=== PATIENT | male | born 1945 | race Caucasian/White ===

== ENCOUNTER → 2017-06-22 | Outpatient (CLI) | payer MEDICARE, OTHER | END | disposition home or self-care (01) | LOC: GMAM 11:46 | PROVIDERS: ATTEND Family Medicine | DX: Z12.5 Encounter for screening for malignant neoplasm of prostate (principal); E55.9 Vitamin D deficiency, unspecified | CPT/HCPCS: 82306; G0103 ==

== ENCOUNTER → 2017-10-11 | Outpatient (CLI) | payer MEDICARE, OTHER ==
--- NOTE | 2017-10-12 09:35 | CT ---
EXAM DESCRIPTION: CTA Runoff: Computed Tomography. CLINICAL HISTORY: AAA COMPARISON: CT abdomen and pelvis 08/08/2012. TECHNIQUE: CT angiography of the abdominal aorta and both lower extremities is performed during rapid bolus administration of IV contrast media. Three-dimensional volume-rendering imaging is reviewed along with 2.5 mm axial source images, and 5.0 mm coronal and sagittal reformats. Total Exam DLP: 1836.25 mGy-cm. This exam was performed according to our departmental CT dose-optimization program which includes automated exposure control, adjustment of the mA and/or kV according to patient size and/or use of iterative reconstruction technique; to reduce radiation dose to as low as reasonably achievable (ALARA). FINDINGS: Upper abdominal aorta: Minimal intimal wall thickening. Minimal atherosclerotic calcification. Origins of the celiac axis and SMA are unremarkable. No aneurysm or stenosis. Mid-abdominal aorta: No aneurysm or stenosis. Bilateral single renal artery origins are unremarkable. Minimal intimal wall thickening and atherosclerotic calcification. Distal abdominal aorta: No aneurysm or stenosis. Intimal wall thickening and atherosclerotic calcification with mild narrowing origin of the HECTOR is unremarkable. Common iliacs: Normal caliber with minimal intimal wall thickening and atherosclerotic calcification. Internal iliacs: Minimal atherosclerotic calcification and normal caliber bilaterally. Bilateral external iliac arteries: Negative. Bilateral SPLICER HELPER's: Minimal calcification on the right, left side is negative with normal caliber. Bilateral SFAs: Negative. Right popliteal: Mostly obscured by artifact from right total knee arthroplasty but proximal and distal visualized and normal caliber. Right trifurcation vessels: Fair runoff into the right SHAKEEL and dorsalis pedis with good runoff into the right AMBULATORY NURSE Left popliteal: Normal caliber. Left trifurcation vessels: Left SHAKEEL is smaller with fair runoff into the dorsalis pedis. Good visualization of the peroneal and AMBULATORY NURSE with good runoff into the ankle. Other: Muscle atrophy in the left lower leg particularly soleus muscle with ORIF and arthrosis in the left ankle. Large cyst right kidney. Atrophy of the left kidney. Diffuse diverticulosis of the colon and redundancy of the sigmoid but no complications. No ascites or free fluid. Spondylosis of the lumbar spine. IMPRESSION: No aneurysm or stenosis from the proximal abdominal aortic to the bilateral ankles. Moderate intimal wall thickening and atherosclerotic calcification in the distal abdominal aorta. Fair runoff from the bilateral anterior tibial arteries into the bilateral dorsalis pedis arteries. Atrophy in the left lower leg which may be related to recent ankle surgery and arthrosis. Right renal cyst and atrophy of the left kidney. Diverticulosis of the mid and distal colon with no evidence of acute inflammation. Electronically signed by: García Negron MD 10/12/2017 9:33 AM CDT
== END ==
LOC: CT 08:59
PROVIDERS: ATTEND Family Medicine
DX: I71.4 Abdominal aortic aneurysm, without rupture (principal)

== ENCOUNTER → 2017-12-18 | Outpatient (CLI) | payer MEDICARE, OTHER ==
--- NOTE | 2017-12-18 16:37 | CT ---
EXAM DESCRIPTION: Head: Computed Tomography. CLINICAL HISTORY: HEADACHE COMPARISON: None. TECHNIQUE: Non-helical axial scans through the skull and brain, at 2.5 mm intervals, non-contrast. Coronal and sagittal 2.0 mm reconstructions. Total Exam DLP: 859.97 mGy-cm. This exam was performed according to our departmental dose-optimization program which includes automated exposure control, adjustment of the mA and/or kV according to patient size and/or use of iterative reconstruction technique; to reduce radiation dose to as low as reasonably achievable (ALARA). FINDINGS: No hemorrhage, no mass-effect, and no midline shift. Minimal low-density in the periventricular white matter and also the bilateral subcortical white matter of the cerebral hemispheres. More focal low-density is noted in the left parietal lobe in the subcortical white matter, on axial series 5, image 38 and 39. No mass effect or hemorrhage. No abnormal radiodense material in the brain parenchyma. Vascular calcifications anterior circulation; physiologic calcifications in the pineal gland and choroid plexus. No effacement or displacement of the ventricles, CSF spaces, or subdural spaces. Cortical sulci abutting the temporal lobes frontal and parietal lobes are mildly prominent but symmetric bilaterally. No extra axial fluid collection or hemorrhage. No gross abnormalities of the bony calvarium. Included paranasal sinuses and mastoid air cells are well - aerated. IMPRESSION: 1. No hemorrhage, no mass effect, no midline shift. Bilateral symmetric minimal low-density in the periventricular white matter and subcortical white matter. Slightly more dense in the left parietal lobe. Differential includes focal ischemia, early infarction, inflammatory process, or mass. Recommend follow-up MRI scan without and with gadolinium IV contrast. Electronically signed by: García Negron MD 12/18/2017 4:36 PM CDT
== END ==
LOC: GMAM 14:51
PROVIDERS: ATTEND Family Medicine
DX: G44.209 Tension-type headache, unspecified, not intractable (principal)

== ENCOUNTER → 2017-12-27 | Outpatient (CLI) | payer MEDICARE, OTHER ==
--- NOTE | 2017-12-27 16:59 | MRI ---
EXAM DESCRIPTION: Brain w/oContrast: MRI. CLINICAL HISTORY: HEADACHE COMPARISON: None. TECHNIQUE: Multiplanar, high-field MRI unit, multiple diffusion sequences, multiple conventional sequences without contrast. FINDINGS: Few small bilateral foci of hyperintense FLAIR and T2-weighted signal in the periventricular white matter and hull-white matter junctions of the cerebral hemispheres. Mostly frontal and parietal lobes right more than left. . No hemorrhage, no cerebral edema, no mass-effect. No diffusion restriction. Possible cyst left posterior parietal waterman radiata at the level of the ventricle. Normal signal in the bilateral basal ganglia. Normal signal in the brainstem and cerebellar hemispheres. No hemorrhage, no cerebral edema, no mass-effect. Concordance of the diffusion and non-diffusion sequences with no diffusion restriction. Cortical sulci, ventricles, and other CSF spaces, and the subdural spaces are normally configured for the patient's age. No effacement or displacement. No midline shift. No extra-axial hemorrhage. Normal flow signal void in the major vessels of the cachil dehe Ayers, and the venous sinuses. IACs are symmetric bilaterally. Normal signal in the bilateral mastoid air cells. No mass effect in the bilateral cerebellopontine angles. Pituitary gland occupies most of the sella. Base of the cerebellar tonsils is above the foramen magnum. Minimal mucoperiosteal thickening in the paranasal sinuses with no air-fluid levels. The bony calvarium is intact. IMPRESSION: 1. Few scattered bilateral white matter lesions are most likely related to cerebral microvascular disease. No intra-axial extra-axial hemorrhage, no mass effect, no cerebral edema, no midline shift. 2. Normal noncontrast MRI diffusion study with no evidence of acute or subacute infarction. 3. Minimal chronic paranasal sinusitis. Electronically signed by: García Negron MD 12/27/2017 4:57 PM CDT
== END ==
LOC: MRI 10:00
PROVIDERS: ATTEND Family Medicine
DX: G44.209 Tension-type headache, unspecified, not intractable (principal); J32.9 Chronic sinusitis, unspecified

== ENCOUNTER → 2018-07-16 | Outpatient (CLI) | payer MEDICARE, OTHER | LOC: GMAM 11:25 | PROVIDERS: ATTEND Family Medicine | DX: E53.8 Deficiency of other specified B group vitamins (principal); E55.9 Vitamin D deficiency, unspecified ==

== ENCOUNTER → 2018-07-18 | Outpatient (CLI) | payer MEDICARE, OTHER | LOC: GMAM 15:18 | PROVIDERS: ATTEND Family Medicine | DX: Z12.5 Encounter for screening for malignant neoplasm of prostate (principal) ==

== ENCOUNTER 2018-12-11 19:18 | Observation (INO) | payer MEDICARE, OTHER ==
[2018-12-11] MEDS ORDERED: MORPHINE SULFATE INJ 10 MG/ML VIAL IV ONE ×2 (19:54→22:20)
[2018-12-11] MEDS ORDERED: ONDANSETRON INJ 4 MG/2 ML VIAL IV ONE (19:54)
--- NOTE | 2018-12-11 19:57 | ED.PDOC ---
History of Present Illness - General Chief Complaint: Back Pain or Injury Stated Complaint: lower back pain Time Seen by Provider: 12/11/18 19:39 Source: patient, RN notes reviewed, Vital Signs reviewed Exam Limitations: no limitations - History of Present Illness Initial Comments: c/o right lower back pain for approx a week after a day of heavy lifting. Pain is similar to previous episodes. Worse with walking or ROM of back. Taking hydrocodone & Tramadol without relief. No fever or abdominal/flank pain. No h/o anuerysm. Does have a long h/o back pain & injury. Has seen a chiropractor twice this week & only hurts more. No cauda equina symptoms. Does have chronic sciatica. Timing/Duration: 1 week Quality/Severity: severe, radiation, sharpness Back Pain Location: lumbar spine, paraspinous muscles Back Pain Radiation: upper legs - right Method of Injury/Prior Injury: twisted, prior injury Improving Factors: immobilization Worsening Factors: movement Associated Symptoms: denies symptoms Allergies/Adverse Reactions: Allergies NO KNOWN ALLERGY Allergy (Verified 12/11/18 19:38) Home Medications: Ambulatory Orders Unobtainable 01/01/16 Review of Systems - Review of Systems Constitutional: States: no symptoms reported EENTM: States: no symptoms reported Respiratory: States: no symptoms reported Cardiology: States: no symptoms reported Gastrointestinal/Abdominal: States: no symptoms reported Genitourinary: States: no symptoms reported Musculoskeletal: States: see HPI Skin: States: no symptoms reported Neurological: States: see HPI Past Medical History (General) - Patient Medical History Hx Seizures: No Hx Stroke: No Hx Dementia: No Hx Asthma: No Hx of COPD: No Hx Cardiac Disorders: No Hx Congestive Heart Failure: No Hx Pacemaker: No Hx Hypertension: No Hx Thyroid Disease: No Hx Diabetes: No Hx Gastroesophageal Reflux: No Hx Renal Disease: No Hx Cancer: No Hx of HIV: No Hx Hepatitis C: No Hx MRSA: No - Vaccination History Hx Tetanus, Diphtheria Vaccination: No Hx Influenza Vaccination: Yes - 2016 Hx Pneumococcal Vaccination: Yes - 2016 - Social History Hx Tobacco Use: No Hx Alcohol Use: No Hx Substance Use: No Hx Substance Use Treatment: No Hx Depression: No - Female History Patient is a Female of Child Bearing Age (10 -59 yrs old): No Family Medical History - Family History Father Family History: No Known Physical Exam - Physical Exam General Appearance: Alert, No apparent distress, Other - uncomfortable Neck Exam: full range of motion, normal inspection Cardiovascular/Respiratory: no respiratory distress Gastrointestinal/Abdominal: non tender, soft, no organomegaly, no pulsatile mass Back Exam: normal inspection, no vertebral tenderness, decreased range of motion Extremity Exam: no evidence of injury, normal range of motion Neurologic: no motor/sensory deficits, alert, normal mood/affect, oriented x 3 Skin Exam: normal color, warm/dry Progress - Consult/PCP Time Called: 19:50 Consult/PCP: Kathy Alvarenga NP Departure - Departure Clinical Impression: Back pain due to injury Time of Disposition: 19:55 Disposition: Admit Patient Condition: Fair Home Medications: Ambulatory Orders Unobtainable 01/01/16 Decision To Admit - Decistion To Admit Decision to Admit Reason: Admit from ER Decision to Admit Date: 12/11/18 - obs Decision to Admit Time: 19:56
--- NOTE | 2018-12-11 21:48 | HP ---
SUPERVISING PHYSICIAN: Filemon Bryant MD CHIEF COMPLAINT: Low back pain, HISTORY OF PRESENT ILLNESS: This is a 73 year-old male patient who came to the Emergency Room due to complaints of lower back pain. He had actually been moving some pips for fence for two days three or four days before presenting to the Emergency Room. He does have a history of lumbar radiculopathy. He has been taking hydrocodone with no relief. The pain in his lower back has worsened to the point he has difficulty getting around. He came to the Emergency Room. His vital signs were temperature of 97.7, heart rate 63, blood pressure 131/84, respiratory rate 20, 02 saturation 95% on room air. His CBC was unremarkable. Coags were also within normal limits. Chemistry was unremarkable except his chloride was slightly low at 99, serum osmolality was low at 269.1. He received some morphine in the Emergency Room and I was called for hospital admission. PAST MEDICAL HISTORY: 1. Abdominal aortic aneurysm. 2. Anxiety with depression. 3. CVA. 4. Cervical spinal stenosis. 5. Chronic pain syndrome. 6. Lumbar radiculopathy. 7. Hyperlipidemia. 8. Osteoarthritis of the knee. 9. Basal cell skin cancer that was removed. 10. diverticulosis. PAST SURGICAL HISTORY: 1. Multiple left ankle surgeries due to a traumatic injury. 2. Left shoulder rotator cuff repair. 3. Joint replacement of right hand. 4. Joint replacement of left ankle. 5. Carpal tunnel on both hands x2. 6. Total knee arthroplasty of right knee. CURRENT MEDICATIONS: Per the EMR and awaiting verification. ALLERGIES: No known allergies. FAMILY HISTORY: Positive for skin cancer, arrhythmias, osteoarthritis, emphysema. SOCIAL HISTORY: He is , he has three children who live in [place]. He quit smoking approximately 30 years ago. He denies any ETOH or illicit drug use. REVIEW OF SYSTEMS: GENERAL: Negative for fever, fatigue or weight changes. HEENT: Negative for sinus symptoms, ear pain, vision changes or sore throat. RESPIRATORY: Negative for wheezing, coughing or shortness of breath. CARDIAC: Negative for chest pain, palpitations or tachycardia. GASTROINTESTINAL: Negative for nausea, vomiting, diarrhea, constipation or abdominal pain. GENITOURINARY: Negative for hematuria, dysuria or polyuria. SKIN: Negative for lesions or rashes. BACK: Positive for some chronic lower back problems with recent injury due to over exertion by lifting fences. Negative for arthralgias, myalgias. NEUROLOGIC: Negative for headache, dizziness, or seizures. LABORATORY AND X-RAY: As per history of present illness. PHYSICAL EXAMINATION: VITAL SIGNS: GENERAL: HEENT: .Normocephalic and atraumatic. Pupils are equal and reactive. NECK: Supple without mass. No jugular venous distention. Trachea is midline. CHEST: .There is equal rise and fall of the chest with inspiration and expiration. CARDIOVASCULAR: Regular rate and rhythm. ABDOMEN: Soft, nondistended, non-tender. Bowel sounds are positive. EXTREMITIES: No cyanosis, clubbing, or edema. NEUROLOGIC: Awake, alert, and oriented times three. ASSESSMENT: 1. Intractable lower back pain most like related to a recent back strain. He also has a history of lumbar radiculopathy as well as chronic lower back pain. 2. History of lumbar radiculopathy. 3. Hyperlipidemia. 4. Depression and anxiety. 5. Osteoarthritis. 6. Chronic pain syndrome on narcotic pain medications chronically. PLAN: We will place the patient in observation. We will change his morphine to Fentanyl as his morphine is not holding his pain. I have also started him on some Neurontin 600 t.i.d. as well as some muscle relaxers. His home medications will be restarted as soon as they are verified. I have put him on Lovenox for DVT prophylaxis as well as PPI for ulcer prophylaxis. I will do some x-rays and CT in the morning. Hopefully, we can get his pain under control and get him to rehabilitation or a neurological consultation and he will need an outpatient lumbar MRI and will continue to monitor him closely and follow as needed. JOB #[id number] [facility]
[2018-12-11] MEDS ORDERED: ONDANSETRON INJ 4 MG/2 ML VIAL IV PRN (22:16)
[2018-12-11] MEDS ORDERED: SODIUM CHLORIDE 0.9% (FLUSH) 10 ML SYG IV PRN (22:16)
[2018-12-11] MEDS ORDERED: TEMAZEPAM 15 MG CAP PO PRN (22:16)
[2018-12-11] MEDS ORDERED: IV SET AND CAP CHANGE INJ INJ SCH (22:30)
[2018-12-11] MEDS: ENOXAPARIN SODIUM 40 MG/0.4 ML SYG SUBCU SCH (22:57)
[2018-12-11] MEDS: CYCLOBENZAPRINE HCL 10 MG TAB PO PRN (22:57)
[2018-12-11] MEDS: GABAPENTIN 300 MG CAP PO SCH (22:57)
[2018-12-11] MEDS ORDERED: MAGNESIUM HYDROXIDE 30 ML UD PO ONE (23:32)
[2018-12-12] MEDS: MORPHINE SULFATE INJ 10 MG/ML VIAL IV PRN ×2 (02:03→03:50)
[2018-12-12] MEDS ORDERED: fentaNYL CITRATE INJ 50 MCG/ML AMP ONE (05:56)
[2018-12-12] MEDS ORDERED: fentaNYL CITRATE INJ 50 MCG/ML AMP IV SCH (06:00)
[2018-12-12] MEDS: fentaNYL CITRATE INJ 50 MCG/ML AMP IV PRN ×2 (06:02→11:04)
[2018-12-12] MEDS ORDERED: PANTOPRAZOLE SODIUM IV 40 MG VIAL IV SCH (06:30)
[2018-12-12] MEDS: GABAPENTIN 300 MG CAP PO SCH ×3 (08:47→20:32)
[2018-12-12] MEDS: SODIUM CHLORIDE 0.9% (FLUSH) 10 ML SYG IV SCH ×2 (08:47→20:33)
--- NOTE | 2018-12-12 11:24 | RAD ---
EXAM: XR Lumbar Spine, 2 or 3 Views CLINICAL HISTORY: 73 years old and is Male; back pain TECHNIQUE: Frontal and lateral views of the lumbar spine. COMPARISON: Limited comparison made to CT 09/05/2012 FINDINGS: Limitations: None. Vertebrae: Diffuse mild facet arthrosis present. There is no interval change very minimal height loss of L1 and L2. Spondylosis noted. No acute fracture. No subluxation. Disc spaces: No significant abnormality noted. No significant narrowing. Soft tissues: Unremarkable. Gastrointestinal tract: Moderate colonic stool present with moderate colonic redundancy noted. IMPRESSION: No acute findings. Electronically signed by: Kerry Sullivan MD 12/12/2018 11:23 AM CDT
[2018-12-12] MEDS ORDERED: HYDROmorphone PCA 0.2 MG/ML 1 BAG BAG IVPB SCH (11:30)
--- NOTE | 2018-12-12 11:47 | CT ---
PROCEDURE: CT Lumbar Spine Without Intravenous Contrast CLINICAL INDICATION: The patient is 73 years old and is Male; intractable low back pain TECHNIQUE: Axial computed tomography images of the lumbar spine without intravenous contrast. Sagittal and coronal reformatted images were created and reviewed. This CT exam was performed using one or more of the following dose reduction techniques: automated exposure control, adjustment of the mA and/or kV according to patient size, and/or use of iterative reconstruction technique. COMPARISON: CTA runoff from 10/11/2017. FINDINGS: VERTEBRAE: There is mild loss of height of the L1 superior endplate and the L2 inferior endplate. However, no discrete fracture is identified. There is NO fracture or malalignment identified in the lumbar spine. There are 5 non-rib bearing lumbar vertebral bodies. Alignment is maintained. The spinous processes and the transverse processes are intact. There is a small in the inferior endplate of L3. Facet hypertrophic changes are noted in the lower lumbar spine. DISCS/SPINAL CANAL/NEURAL FORAMINA: There is NO large disc herniation with small disc bulges at the lower levels. Disc heights are relatively preserved. No spinal canal stenosis. SOFT TISSUES: Unremarkable. VASCULATURE: There are atheromatous vascular calcifications of the aortoiliac system. KIDNEYS AND URETERS: Large RIGHT renal cyst is noted. STOMACH AND BOWEL: There is an abundant amount of stool within the rectal lumen. REPRODUCTIVE: The prostate gland is enlarged. OTHER FINDINGS: There is NO paravertebral hematoma. IMPRESSION: There is mild loss of height of the L1 superior endplate and the L2 inferior endplate. However, no discrete fracture is identified. In comparison to the prior CT runoff exam, the appearance of these 2 vertebral levels is unchanged. Mild degenerative changes as noted. Electronically signed by: Shar Munoz MD 12/12/2018 11:45 AM CDT
[2018-12-12] MEDS ORDERED: methylPREDNISolone SODIUM SUC 125 MG/2 ML VIAL IV ONE (13:00)
[2018-12-12] MEDS ORDERED: SODIUM CHLORIDE 0.9% 250ML 250 ML ONE (13:07)
[2018-12-12] MEDS ORDERED: SODIUM CHLORIDE 0.9% 250ML 250 ML IVS PRN (13:27)
[2018-12-12] MEDS: KETOROLAC TROMETHAMINE INJ 30 MG/ML VIAL IV SCH ×2 (14:45→20:32)
--- NOTE | 2018-12-12 15:53 | PN ---
SUPERVISING PHYSICIAN: Filemon Bryant MD DATE: 12/12/18 SUBJECTIVE: The patient is lying quietly in bed. Earlier today we placed him on a MANUAL TRAINING TEACHER pump of Dilaudid to get his pain under control. He is still a little bit restless but much better than he was earlier. I discussed his test results with his and she agreed with the plan of care. The patient has no complaints of shortness of breath, nausea or vomiting. OBJECTIVE: VITAL SIGNS: Temperature 98.2, heart rate 66, blood pressure 105/69. Respiratory rate 18, 02 saturation 96% on 2 liters nasal cannula. RESPIRATORY: Essentially clear to auscultation bilaterally. CARDIAC: Regular rate and rhythm. GI: Abdomen soft, nondistended, non-tender, bowel sounds are positive. NEURO: He is sleepy but awakens easily. He is oriented times 3. LABORATORY: There are no labs to report at this time. RADIOLOGY: Lumbar spine x-ray shows no acute findings. Lumbar spine CT shows mild loss of height at the L1 superior endplate and the L2 inferior endplate, however, no discrete fractures are identified in comparison to the prior CT exam. The appearance of these two vertebral levels is unchanged and mild degenerative changes noted. All other labs and films have been reviewed via the EMR. ASSESSMENT: 1. Intractable lower back pain most like related to a recent back strain. He also has a history of lumbar radiculopathy as well as chronic lower back pain. 2. History of lumbar radiculopathy. 3. Hyperlipidemia. 4. Depression and anxiety. 5. Osteoarthritis. 6. Chronic pain syndrome on narcotic pain medications chronically. PLAN: As stated earlier in the note, a MANUAL TRAINING TEACHER of Dilaudid has been started. His other IV pain medications have been discontinued. Will try to wean patient off of MANUAL TRAINING TEACHER pump and restart his home medications. I spoke at length to his PCP, Dr. Bryant, and plan to continue to keep his pain under control to wean him off of his IV medication and transition him back to oral medication. I will hold off on lab for in the morning as his lab is fairly stable. I have also given him four doses of IV Toradol and also started him on a Solu-Medrol IV taper. Will transition him to p.o. prednisone tomorrow. Hopefully, we have him discharged tomorrow or the next day with followup with Dr. Bryant. He will need an outpatient MRI as well as possible consultation for neurosurgery or a pain doctor that specializes in back issues or a neurologist. I also may increase his Gabapentin as that may help with his pain but at this point, I will leave him on 600 mg t.i.d. as well as his muscle relaxer. I have encouraged good pulmonary hygiene and will monitor him closely and follow as needed. #[id number] BOB
[2018-12-12] MEDS: DUTASTERIDE 0.5 MG CAP PO SCH (17:34)
[2018-12-12] MEDS: TAMSULOSIN 0.4 MG CAP PO SCH (17:34)
[2018-12-12] MEDS: ENOXAPARIN SODIUM 40 MG/0.4 ML SYG SUBCU SCH (20:32)
[2018-12-12] MEDS: QUEtiapine FUMARATE 25 MG TAB PO SCH (20:33)
[2018-12-12] MEDS: traZODone HCL 50 MG TAB PO SCH (20:33)
[2018-12-13] MEDS: KETOROLAC TROMETHAMINE INJ 30 MG/ML VIAL IV SCH ×2 (03:04→10:18)
[2018-12-13] MEDS: PANTOPRAZOLE SODIUM TAB 40 MG PO SCH (06:10)
[2018-12-13] MEDS: GABAPENTIN 300 MG CAP PO SCH ×3 (10:06→20:35)
[2018-12-13] MEDS: SODIUM CHLORIDE 0.9% (FLUSH) 10 ML SYG IV SCH ×2 (10:18→20:36)
[2018-12-13] MEDS ORDERED: MAGNESIUM HYDROXIDE 30 ML UD PO PRN (11:31)
[2018-12-13] MEDS: POLYETHYLENE GLYCOL 3350 17 GM PCKT PO SCH (11:49)
[2018-12-13] MEDS: predniSONE 20 MG TAB PO SCH (11:49)
[2018-12-13] MEDS: HYDROcodone 10MG/APAP 325MG 1 EA TAB PO PRN ×2 (16:58→20:56)
[2018-12-13] MEDS: TAMSULOSIN 0.4 MG CAP PO SCH (17:41)
[2018-12-13] MEDS: DUTASTERIDE 0.5 MG CAP PO SCH (17:41)
[2018-12-13] MEDS: CYCLOBENZAPRINE HCL 10 MG TAB PO PRN (18:37)
[2018-12-13] MEDS: traZODone HCL 50 MG TAB PO SCH (20:36)
[2018-12-13] MEDS: ENOXAPARIN SODIUM 40 MG/0.4 ML SYG SUBCU SCH (20:36)
[2018-12-13] MEDS: QUEtiapine FUMARATE 25 MG TAB PO SCH (20:36)
[2018-12-14] MEDS: HYDROcodone 10MG/APAP 325MG 1 EA TAB PO PRN ×3 (01:51→12:19)
[2018-12-14] MEDS: PANTOPRAZOLE SODIUM TAB 40 MG PO SCH (06:05)
[2018-12-14] MEDS: SODIUM CHLORIDE 0.9% (FLUSH) 10 ML SYG IV SCH (08:47)
[2018-12-14] MEDS: GABAPENTIN 300 MG CAP PO SCH (08:47)
[2018-12-14] MEDS: POLYETHYLENE GLYCOL 3350 17 GM PCKT PO SCH (08:47)
[2018-12-14] MEDS: predniSONE 20 MG TAB PO SCH (08:47)
[2018-12-14 10:17] VITALS: BP 110/67; TEMP 97.7
--- NOTE | 2018-12-14 10:49 | PN ---
SUPERVISING PHYSICIAN: Filemon Bryant MD DATE: 12/13/18 SUBJECTIVE: The patient is lying in bed. His is at the bedside. He is feeling better and his pain is under much better control. We discussed discharge planning with [facility] in [place] and he and his that is the most likely the best option for him. He denies any shortness of breath, chest pain or nausea or vomiting. OBJECTIVE: VITAL SIGNS: Temperature 97.7, heart rate 64, blood pressure 103/64. Respiratory rate 16, 02 saturation 96% on 3 liters nasal cannula. RESPIRATORY: Essentially clear to auscultation bilaterally. CARDIAC: Regular rate and rhythm. GI: Abdomen soft, nondistended, non-tender, bowel sounds are positive. EXTREMITIES: No cyanosis, clubbing, or edema. NEURO: He is awake, alert, and oriented times 3. LABORATORY: There are no labs or films to report at this time. ASSESSMENT: 1. Intractable lower back pain most like related to a recent back strain. He also has a history of lumbar radiculopathy as well as chronic lower back pain. 2. History of lumbar radiculopathy. 3. Hyperlipidemia. 4. Depression and anxiety. 5. Osteoarthritis. 6. Chronic pain syndrome on narcotic pain medications chronically. PLAN: We will continue with present supportive care. I spoke with Dr. Bryant at length today about discharge planning of this patient and spoke with patient and his . Dr. Bryant, the patient and his have agreed that the best choice of treatment for him is to be transferred to a rehabilitation facility. He has agreed to [facility] in [place]. They are to come to the hospital this afternoon and evaluate him. His pain has been fairly well under control. We will discontinue his SCREW SUPERVISOR pump and start him on his ibuprofen 10 mg/350 today. His IV steroids have been titrated down and he will start his p.o. prednisone tomorrow. Hopefully, [facility] will accept him and he can be transferred this afternoon or tomorrow morning and that they can get an MRI of his lower back as well as a neurology or neurosurgical consultation, otherwise, the patient can be transferred. We will continue to monitor him closely and follow as needed. [facility][id number]
[2018-12-14 14:58] VITALS: O2SAT 93
--- NOTE | 2018-12-15 14:51 | DS ---
SUPERVISING PHYSICIAN: Filemon Bryant M.D. ADMISSION DIAGNOSIS: 1. Intractable lower back pain most like related to a recent back strain. He also has a history of lumbar radiculopathy as well as chronic lower back pain. 2. History of lumbar radiculopathy. 3. Hyperlipidemia. 4. Depression and anxiety. 5. Osteoarthritis. 6. Chronic pain syndrome on narcotic pain medications chronically. DISCHARGE DIAGNOSIS: 1. Intractable lower back pain most like related to a recent back strain. He also has a history of lumbar radiculopathy as well as chronic lower back pain. 2. History of lumbar radiculopathy. 3. Hyperlipidemia. 4. Depression and anxiety. 5. Osteoarthritis. 6. Chronic pain syndrome on narcotic pain medications chronically. REASON FOR HOSPITALIZATION: This is a 73 year-old male patient who came to the Emergency Room due to complaints of lower back pain. He had actually been moving some pips for fence for two days three or four days before presenting to the Emergency Room. He does have a history of lumbar radiculopathy. He has been taking hydrocodone with no relief. The pain in his lower back has worsened to the point he has difficulty getting around. He came to the Emergency Room. His vital signs were temperature of 97.7, heart rate 63, blood pressure 131/84, respiratory rate 20, 02 saturation 95% on room air. His CBC was unremarkable. Coags were also within normal limits. Chemistry was unremarkable except his chloride was slightly low at 99, serum osmolality was low at 269.1. He received some morphine in the Emergency Room and I was called for hospital admission. LABORATORY STUDIES: CBC on admission showed normal white count. No differential shift. Coagulation studies showed to be normal PT and PTT. Chemistries were unremarkable on admission with BUN 11, creatinine 0.79, magnesium 2.2. Liver functions all within normal limits. RADIOLOGY: In the E. R. prior to admission he had a lumbar spine x-ray and per radiology interpretation showed no acute findings. This was followed-up with a CT of the lumbar spine and per radiology interpretation showed mild loss of height of L1 superior end plate and L2 inferior end plate, however no discrete fractures were identified. In comparison to the prior CT runoff exam, the appearance of these 2 vertebral levels are unchanged. There was note of mild degenerative changes. Please see that final report for full details. HOSPITAL COURSE: Mr. Clay was admitted for intractable back pain and provided pain management with a IMMIGRATION CONSULTANT pump with Dilaudid, and was transitioned to oral medications. He had a consultation with [facility] facility and was accepted in transfer for continued treatment. On the day of discharge he was felt to be clinically stable enough to transfer to continue with rehab through inpatient hospital rehab through [facility]. PLAN: The patient was discharged to transfer to [facility] facility for continued rehabilitation efforts. He is to followup with his primary care physician once discharged as directed, who is Dr. Bryant. He was instructed to continue medications as per his medical administration record. He was to have ongoing physical therapy per [facility]. Diet was to be regular diet as tolerated. Condition on discharge was stable and improving. DISPOSITION: The patient is discharged and transferred to [facility] in [place], [place]. #[id number] MTDD
== END 2018-12-14 12:30 ==
LOC: ER 19:18 → MS 21:47
PROVIDERS: ADMIT Nurse Practitioner Acute Care; ATTEND Nurse Practitioner Family
DX: M54.41 Lumbago with sciatica, right side (principal); M54.16 Radiculopathy, lumbar region; G89.4 Chronic pain syndrome; E78.5 Hyperlipidemia, unspecified; F41.8 Other specified anxiety disorders; M19.90 Unspecified osteoarthritis, unspecified site; M48.02 Spinal stenosis, cervical region; X50.0XXA Overexertion from strenuous movement or load, initial encounter; X50.3XXA Overexertion from repetitive movements, initial encounter; Y93.89 Activity, other specified; Y92.008 Other place in unspecified non-institutional (private) residence as the place of occurrence of the external cause; Z79.891 Long term (current) use of opiate analgesic; Z79.899 Other long term (current) drug therapy; Z86.73 Personal history of transient ischemic attack (TIA), and cerebral infarction without residual deficits; Z96.651 Presence of right artificial knee joint; Z96.662 Presence of left artificial ankle joint; Z85.828 Personal history of other malignant neoplasm of skin; Z87.891 Personal history of nicotine dependence
CPT/HCPCS: 96374; 96375 ×2; 96376 ×3; 96372 ×3; J3010 ×2; J1885 ×4; J2930; J2270 ×4; J2405; J7512 ×2; J7050 ×2; J1650 ×3; 80053; 36415; 85025; 83735; 85730; 85610; 72100; 72131; 94760 ×2; 94762 ×5; 97116; G8978; G8979; 97162; 99285; G0378

== ENCOUNTER → 2018-12-21 | Outpatient (CLI) | payer MEDICARE, OTHER | LOC: YCHH 10:13 | PROVIDERS: ATTEND Family Medicine | DX: N39.0 Urinary tract infection, site not specified (principal) ==

== ENCOUNTER → 2019-02-05 | Outpatient (CLI) | payer MEDICARE, OTHER | LOC: LAB.O 11:33 | PROVIDERS: ATTEND Neurological Surgery | DX: Z01.812 Encounter for preprocedural laboratory examination (principal); M54.16 Radiculopathy, lumbar region ==

== ENCOUNTER → 2019-03-27 | Outpatient (CLI) | payer MEDICARE, OTHER | LOC: GMAM 09:07 | PROVIDERS: ATTEND Family Medicine | DX: D64.9 Anemia, unspecified (principal); E78.5 Hyperlipidemia, unspecified; R73.09 Other abnormal glucose; E55.9 Vitamin D deficiency, unspecified; E53.8 Deficiency of other specified B group vitamins ==

== ENCOUNTER → 2019-09-18 | Outpatient (CLI) | payer MEDICARE, OTHER | LOC: GMAM 11:58 | PROVIDERS: ATTEND Family Medicine | DX: E53.8 Deficiency of other specified B group vitamins (principal); E55.9 Vitamin D deficiency, unspecified; E78.2 Mixed hyperlipidemia; Z12.5 Encounter for screening for malignant neoplasm of prostate; Z79.899 Other long term (current) drug therapy | CPT/HCPCS: 82306; 82607; G0103 ==

== ENCOUNTER → 2020-03-18 | Outpatient (CLI) | payer MEDICARE, OTHER | LOC: GMAM 17:07 | PROVIDERS: ATTEND Family Medicine | DX: E53.8 Deficiency of other specified B group vitamins (principal); E55.9 Vitamin D deficiency, unspecified; D64.9 Anemia, unspecified; E78.2 Mixed hyperlipidemia; R97.20 Elevated prostate specific antigen [PSA] ==

== ENCOUNTER → 2020-03-24 | Outpatient (CLI) | payer MEDICARE, OTHER | LOC: GMAM 15:06 | PROVIDERS: ATTEND Family Medicine | DX: U07.1 COVID-19 (principal); R71.8 Other abnormality of red blood cells; R09.02 Hypoxemia ==

== ENCOUNTER 2020-03-26 21:19 | Emergency (ER) | payer MEDICARE, OTHER ==
--- NOTE | 2020-03-26 21:30 | ED.PDOC ---
History of Present Illness - General Time Seen by Provider: 03/26/20 21:28 Source: patient - History of Present Illness Initial Comments: 74-year-old male who presents with chief complaint of shortness of breath. Patient reports he was diagnosed with COVID-19 days ago in the clinic. His PCP is Dr. Bryant. He was told that if he had worsening condition he should be seen in the ER. He reports that he has been sick now for about 1 week. Reports prim juana symptoms of frequent cough reductive for mucus, watery diarrhea with about 3-4 episodes per day, intermittent nausea, fatigue/malaise, moderate dyspnea, body aches. Reports his cough and dyspnea seem to have worsened today. Reports he become short of breath with walking short distances around his home. Rates his dyspnea and cough is moderate in severity. Patient was seen yesterday and given a steroid IM injection and reports brief improvement initially but is now worsened. Additionally reports some mild constant tightness in the center of his chest without radiation. No medications taken for. Denies any history of cardiac issues/VT. Patient is is otherwise pretty healthy. He reports no major medical issues. Denies any history of hypertension, diabetes. He has never been a smoker and denies any history of asthma or COPD. His is also currently ill with COVID-19 in the household. Allergies/Adverse Reactions: Allergies NO KNOWN ALLERGY Allergy (Verified 12/11/18 19:38) Home Medications: Ambulatory Orders Dutasteride 0.5 mg PO .1800 12/11/18 Fluoxetine HCl [Fluoxetine Hydrochloride] 12/11/18 Quetiapine Fumarate 25 mg PO BEDTIME PRN 12/11/18 Tamsulosin HCl 0.4 mg PO .1800 12/11/18 Tramadol HCl [Tramadol Hydrochloride] 50 - 100 mg PO Q6H PRN 12/11/18 Trazodone HCl [Trazodone Hydrochloride] 50 mg PO BEDTIME 12/11/18 Cyclobenzaprine HCl [Flexeril] 10 mg PO TID PRN tab 12/14/18 Gabapentin [Neurontin] 600 mg PO TID cap 12/14/18 HYDROcodone 10MG/APAP 325MG [[place] 10/325] 1 ea PO Q4H PRN tab 12/14/18 Pantoprazole Tablet [Protonix] 40 mg PO DAILY@0630 tab 07/06/19 predniSONE 40 mg PO DAILY tab 12/14/18 Review of Systems - Review of Systems Review of Systems: 03/26/20 21:50 as per HPI All other Systems: Reviewed and Negative Past Medical History (General) - Patient Medical History Hx Seizures: No Hx Stroke: No Hx Dementia: No Hx Asthma: No Hx of COPD: No Hx Cardiac Disorders: No Hx Congestive Heart Failure: No Hx Pacemaker: No Hx Hypertension: No Hx Thyroid Disease: No Hx Diabetes: No Hx Gastroesophageal Reflux: No Hx Renal Disease: No Hx Cancer: No Hx of HIV: No Hx Hepatitis C: No Hx MRSA: No - Vaccination History Hx Tetanus, Diphtheria Vaccination: No Hx Influenza Vaccination: Yes - 2016 Hx Pneumococcal Vaccination: Yes - 2016 - Social History Hx Tobacco Use: No Hx Alcohol Use: No Hx Substance Use: No Hx Substance Use Treatment: No Hx Depression: No Hx Physical Abuse: No Hx Emotional Abuse: No Family Medical History - Family History Father Family History: No Known Living Status: Cause of : old age Mother Living Status: Cause of : copd Physical Exam - Physical Exam General Appearance: Alert, Comfortable, No apparent distress Eye Exam: bilateral normal Ears, Nose, Throat: hearing grossly normal, normal ENT inspection, normal pharynx Neck: non-tender, full range of motion, supple, normal inspection Respiratory: lungs clear, normal breath sounds, no respiratory distress, no accessory muscle use Cardiovascular/Chest: normal peripheral pulses, regular rate, rhythm, no edema, no gallop, no JVD, no murmur Peripheral Pulses: radial,right: 2+, radial,left: 2+ Gastrointestinal/Abdominal: non tender, soft, no organomegaly Back Exam: normal inspection, no CVA tenderness Extremity: normal range of motion, non-tender, normal inspection, no pedal edema, no calf tenderness, normal capillary refill Neurologic: bmw sales consultant II-XII nml as tested, no motor/sensory deficits, alert, normal mood/affect, oriented x 3 Skin Exam: normal color, warm/dry Progress - Progress Progress: 03/26/20 21:51 Dyspnea, chest tightness -Suspect most likely due to COVID-19 respiratory infection. Consider also superimposed bacterial pneumonia, flu, strep, ACS, CHF, musculoskeletal chest pain, reactive airway disease, PE, CHF, other -Patient with borderline low SPO2 on arrivalranging from 87 to 94% on room air. Patient with no respiratory distress or accessory muscle use. He is able to speak in full sentences comfortably. Breath sounds are clear throughout, vitals otherwise stable -Obtain COVID-19 ED panel, flu/strep testing, cardiac work-up -Apply supplemental oxygen via nasal cannula, continue to monitor closely 03/27/20 00:09 -Patient has remained stable in the ED. He has maintained SPO2 92% on room air. Otherwise vitals have remained stable. His chest x-ray is consistent with COVID-19 viral pneumonia. Blood work reveals leukopenia and mild thrombocytopenia consistent with viral infection. Flu and strep testing are negative. CRP minimally elevated to 1.8. D-dimer neg. Lab work otherwise is largely unremarkable. Troponin level normal. -Discussed all findings with patient and diagnosis of COVID-19. Given the limited hospital beds here and by patient strongly requests to go home to help care for his , will give trial of discharge with continued outpatient management. Will give dose of Decadron 6 mg IM prior to ED discharge. I advised the patient to follow-up in clinic tomorrow for repeat pulse oximetry check. -Discharged home in fair condition, ED return warnings discussed at length. Shiv Baxter MD Billing #[id number] 03/26/20 21:29 Isolation:Airborne ONCE 03/26/20 21:30 EKG STAT Pulse Ox, Continuous Monitoring STAT UA [URINALYSIS] Stat 03/26/20 23:00 STREP A SCREEN CULTURE Stat 03/27/20 09:00 Oxygen Daily 03/27/20 21:30 Pulse Ox, Continuous Monitoring STAT 03/28/20 21:30 Pulse Ox, Continuous Monitoring STAT Laboratory Results - last 24 hr 03/26/20 03/26/20 03/26/20 21:46 21:46 21:46 WBC 4.4 L RBC 4.92 Hgb 14.0 Hct 40.6 L MCV 82.6 MCH 28.4 MCHC 34.4 RDW 13.4 Plt Count 112 L MPV 8.2 Absolute Neuts (auto) 2.90 Absolute Lymphs (auto) 1.00 Absolute Monos (auto) 0.40 Absolute Eos (auto) 0.00 Absolute Basos (auto) 0.00 Neutrophils % 65.9 Lymphocytes % 23.8 Monocytes % 9.7 H Eosinophils % 0.1 L Basophils % 0.5 PTT (SP) 29.9 D-Dimer, Quantitative < 131.0 L Sodium 134 L Potassium 4.1 Chloride 97 L Carbon Dioxide 29 Anion Gap 12.1 BUN 17 Creatinine 0.91 BUN/Creatinine Ratio 18.7 Random Glucose 103 Serum Osmolality 270.0 L Calcium 8.6 Magnesium 1.9 Total Bilirubin 0.8 AST 23 ALT 22 Alkaline Phosphatase 56 LD Total 113 Creatine Kinase 133 Troponin I C-Reactive Protein 1.8 H B-Natriuretic Peptide < 15.0 Serum Total Protein 6.9 Albumin 4.1 Globulin 2.8 Albumin/Globulin Ratio 1.5 Group A Strep Rapid 03/26/20 03/26/20 21:46 23:00 WBC RBC Hgb Hct MCV MCH MCHC RDW Plt Count MPV Absolute Neuts (auto) Absolute Lymphs (auto) Absolute Monos (auto) Absolute Eos (auto) Absolute Basos (auto) Neutrophils % Lymphocytes % Monocytes % Eosinophils % Basophils % PTT (SP) D-Dimer, Quantitative Sodium Potassium Chloride Carbon Dioxide Anion Gap BUN Creatinine BUN/Creatinine Ratio Random Glucose Serum Osmolality Calcium Magnesium Total Bilirubin AST ALT Alkaline Phosphatase LD Total Creatine Kinase Troponin I < 0.02 C-Reactive Protein B-Natriuretic Peptide Serum Total Protein Albumin Globulin Albumin/Globulin Ratio Group A Strep Rapid Negative - EKG/XRAY/CT EKG: Sinus - Normal sinus rhythm, heart rate 90, no ST elevations or Q waves noted axis normal, intervals normal, no prior EKG for comparison. XRAY: chest - Faint bilateral groundglass opacities noted in the middle and lower lung aguirre consistent with COVID-19 pneumonia per my read Departure - Departure Clinical Impression: COVID-19 Time of Disposition: 00:09 Disposition: Discharge to Home or Self Care Condition: Fair Instructions: Shortness of Breath (Dyspnea) (DC), Coronavirus Disease 2019 (COVID-19) Diet: resume usual diet Activity: increase activity as tolerated Referrals: Filemon Bryant MD [Primary Care Provider] - 1-2 Weeks Home Medications: Ambulatory Orders Dutasteride 0.5 mg PO .179912/11/18 Fluoxetine HCl [Fluoxetine Hydrochloride] 12/11/18 Quetiapine Fumarate 25 mg PO BEDTIME PRN 12/11/18 Tamsulosin HCl 0.4 mg PO .179912/11/18 Tramadol HCl [Tramadol Hydrochloride] 50 - 100 mg PO Q6H PRN 12/11/18 Trazodone HCl [Trazodone Hydrochloride] 50 mg PO BEDTIME 12/11/18 Cyclobenzaprine HCl [Flexeril] 10 mg PO TID PRN tab 12/14/18 Gabapentin [Neurontin] 600 mg PO TID cap 12/14/18 HYDROcodone 10MG/APAP 325MG [[place] 10/325] 1 ea PO Q4H PRN tab 12/14/18 Pantoprazole Tablet [Protonix] 40 mg PO DAILY@0630 tab 12/14/18 predniSONE 40 mg PO DAILY tab 12/14/18 Additional Instructions: Remain well-hydrated and advance your diet and activity level gradually as tolerated. Is advised that you return to the outpatient clinic or urgent care tomorrow for outpatient check of your pulse oximetry level. Return to the ED if you develop worsening shortness of breath, chest pain, or other concerning symptoms as discussed. You will need to continue to self quarantine and avoid contact with patients at increased risk for with significant medical comorbidities. Follow-up with your primary care physician is recommended in the next 2 to 3 days for repeat evaluation or sooner as needed.
--- NOTE | 2020-03-26 22:01 | RAD ---
EXAM DESCRIPTION: Chest,1 View 03/26/2020 9:58 PM CDT CLINICAL HISTORY: 74 years, Male, chest tightness, COVID-19+ COMPARISON: None FINDINGS: Single view of the chest was obtained portable. No prior films are available for comparison. The cardiomediastinal silhouette demonstrate to be unremarkable. The heart is not enlarged. The thoracic aorta demonstrate very minimal intimal aortic arch calcification and tortuosity. Minimal groundglass opacities and linear densities are suggested within the mid/lower lung zones bilaterally, greater right than left. There are no pleural effusions and/or significant focal areas of consolidation. There is questionable minimal deformity of the left ribs perhaps suggesting old fractures The rest of the soft tissue and bony structures demonstrate to be unremarkable. IMPRESSION: VERY MILD AREAS OF GROUNDGLASS OPACITIES AND LINEAR DENSITIES WITHIN THE MID/LOWER LUNG ZONES, FINDINGS COULD CORRESPOND TO COVID 19 PNEUMONIA CORRELATE WITH LAB VALUES. Electronically signed by: Rodo Gibbs MD 03/26/2020 10:00 PM CDT
[2020-03-27] MEDS ORDERED: DEXAMETHASONE INJ 4 MG/ML VIAL IM ONE (00:07)
[2020-03-27 00:52] VITALS: O2SAT 93
[2020-03-27 00:55] VITALS: BP 117/92; TEMP 97.4
== END 2020-03-27 00:45 | disposition home or self-care (01) ==
LOC: ER 21:19
DX: U07.1 COVID-19 (principal); R06.02 Shortness of breath; R91.8 Other nonspecific abnormal finding of lung field
CPT/HCPCS: 71045; 80053; 82550; 83615; 83735; 83880; 84484; 85025; 85379; 85730; 86140; 87070; 87502; 87880; 93005; J1100

== ENCOUNTER 2020-03-29 11:03 | Inpatient (IN) | payer MEDICARE, OTHER ==
--- NOTE | 2020-03-29 11:11 | ED.PDOC ---
History of Present Illness - General Time Seen by Provider: 03/29/20 11:10 Source: patient - History of Present Illness Initial Comments: 74-year-old male who presents with chief complaint of shortness of breath. Patient was diagnosed with COVID-19 last week. He reports he has been ill now for about 1 week. He was seen in the ED 3 days ago for similar symptoms. He was noted to have borderline SPO2 at that time. He improved to 92% on room air and was discharged home. He reports his shortness of breath and coughing have worsened in the past 2 nights, up for most of the night with frequent hacking cough, minimally productive for clear mucus. Reports constant mild dyspnea at rest which worsens with walking short distances and mild to moderate exertion. He additionally reports constant tightness in the center of his chest which he rates as 7/10 in severity currently and seems also slightly worsened in the past couple of days. He reports he was having diarrhea for several days but this has resolved 2 days ago. Denies any fevers, chills, abdominal pain, nausea/vomiting, leg swelling. His is also ill with COVID-19. He recently completed azithromycin yesterday. He did receive a shot of steroids last week and also 3 days ago in the ED with brief improvement. The patient is otherwise pretty healthy. Denies any history of hypertension, diabetes, cardiac issues, blood clots. Allergies/Adverse Reactions: Allergies NO KNOWN ALLERGY Allergy (Verified 12/11/18 19:38) Home Medications: Ambulatory Orders Dutasteride 0.5 mg PO .179912/11/18 Fluoxetine HCl [Fluoxetine Hydrochloride] 12/11/18 Quetiapine Fumarate 25 mg PO BEDTIME PRN 12/11/18 Tamsulosin HCl 0.4 mg PO .179912/11/18 Tramadol HCl [Tramadol Hydrochloride] 50 - 100 mg PO Q6H PRN 12/11/18 Trazodone HCl [Trazodone Hydrochloride] 50 mg PO BEDTIME 12/11/18 Cyclobenzaprine HCl [Flexeril] 10 mg PO TID PRN tab 12/14/18 Gabapentin [Neurontin] 600 mg PO TID cap 12/14/18 HYDROcodone 10MG/APAP 325MG [[place] 10/325] 1 ea PO Q4H PRN tab 12/14/18 Pantoprazole Tablet [Protonix] 40 mg PO DAILY@0630 tab 12/14/18 predniSONE 40 mg PO DAILY tab 12/14/18 Review of Systems - Review of Systems Review of Systems: 03/29/20 11:56 as per HPI All other Systems: Reviewed and Negative Past Medical History (General) - Patient Medical History Hx Seizures: No Hx Stroke: No Hx Dementia: No Hx Asthma: No Hx of COPD: No Hx Cardiac Disorders: No Hx Congestive Heart Failure: No Hx Pacemaker: No Hx Hypertension: No Hx Thyroid Disease: No Hx Diabetes: No Hx Gastroesophageal Reflux: No Hx Renal Disease: No Hx Cancer: No Hx of HIV: No Hx Hepatitis C: No Hx MRSA: No - Vaccination History Hx Tetanus, Diphtheria Vaccination: No Hx Influenza Vaccination: Yes - 2015 Hx Pneumococcal Vaccination: Yes - 2016 - Social History Hx Tobacco Use: No Hx Alcohol Use: No Hx Substance Use: No Hx Substance Use Treatment: No Hx Depression: No Hx Physical Abuse: No Hx Emotional Abuse: No Family Medical History - Family History Father Family History: No Known Living Status: Cause of : old age Mother Living Status: Cause of : copd Physical Exam - Physical Exam General Appearance: Alert, Comfortable, No apparent distress Eye Exam: bilateral normal Ears, Nose, Throat: hearing grossly normal, normal ENT inspection, normal pharynx Neck: non-tender, full range of motion, supple, normal inspection Respiratory: chest non-tender, other - Good air movement throughout, faint bibasilar crackles noted, no wheezes. Patient is able to speak in full sentences at rest but occasionally noted to take a deep breath Cardiovascular/Chest: normal peripheral pulses, no edema, no murmur, tachycardia Peripheral Pulses: radial,right: 2+, radial,left: 2+ Gastrointestinal/Abdominal: non tender, soft, no organomegaly Back Exam: normal inspection, no CVA tenderness, no vertebral tenderness Extremity: normal range of motion, non-tender, normal inspection, no pedal edema, no calf tenderness, normal capillary refill Neurologic: anaesthesiologist II-XII nml as tested, no motor/sensory deficits, alert, normal mood/affect, oriented x 3 Skin Exam: normal color, warm/dry Progress - Progress Progress: 03/29/20 11:58 Shortness of breath, chest tightness -Suspect sequelae of COVID-19 pneumonia. Consider also sepsis, bacterial pneumonia, ACS, CHF, PE, other viral illness, other -Patient with SPO2 87% on room air upon arrival, noted to be tachycardic 110s, vitals otherwise stable -Obtain full COVID-19 ED work-up, cardiac work-up, sepsis work-up -Place peripheral IV, 1 L normal saline bolus 03/29/20 13:03 -Patient reports dyspnea much improved with supplemental oxygen by nasal cannula, currently at 2.5 L/min. SPO2 now 95%. Tachycardia now resolved as well. -X-ray of the chest reveals bilateral lower lobe interstitial infiltrates worse on the left, but this seems slightly worsened compared to chest x-ray 3 days ago. This is per my read -Labs reveal serum WBC 4000 with 75% neutrophils. Lactic acid is within normal limits. CRP is increased to 3.8 from 1.8 3 days ago. Serum glucose slightly elevated, K 3.3. Remainder of labs largely unremarkable. -Discussed patient with Gagandeep Rowley, hospitalist, who accepts for admission for COVID-19 pneumonia with acute hypoxia. Begin treatment in ED with Decadron 6 mg IV. KCl 40 mEq PO for hypokalemia. Shiv Baxter MD Billing #[id number] 03/29/20 11:10 Telemetry STAT 03/29/20 11:15 EKG STAT Oxygen STAT Pulse Ox, Continuous Monitoring STAT 03/29/20 12:02 RESPIRATORY PANEL 2 Stat STREP A SCREEN CULTURE Stat 03/29/20 12:25 BLOOD CULTURE Stat 03/30/20 11:15 Oxygen STAT Pulse Ox, Continuous Monitoring STAT 03/31/20 11:15 Pulse Ox, Continuous Monitoring STAT Laboratory Results - last 24 hr 03/29/20 03/29/20 03/29/20 11:28 11:28 11:28 WBC 4.1 L RBC 5.10 Hgb 14.7 Hct 42.2 MCV 82.6 MCH 28.9 MCHC 34.9 RDW 13.6 Plt Count 139 MPV 7.7 Absolute Neuts (auto) 3.10 Absolute Lymphs (auto) 0.60 L Absolute Monos (auto) 0.40 Absolute Eos (auto) 0.00 Absolute Basos (auto) 0.00 Neutrophils % 75.1 Lymphocytes % 15.6 L Monocytes % 8.8 Eosinophils % 0.0 L Basophils % 0.5 PTT (SP) 31.2 D-Dimer, Quantitative 137.0 Sodium 134 L Potassium 3.3 L Chloride 97 L Carbon Dioxide 27 Anion Gap 13.3 BUN 16 Creatinine 0.89 BUN/Creatinine Ratio 18.0 Random Glucose 176 H D Serum Osmolality 273.7 L Lactic Acid Calcium 8.1 L Magnesium 2.1 Total Bilirubin 0.7 AST 26 ALT 23 Alkaline Phosphatase 65 LD Total 123 Creatine Kinase 61 Troponin I C-Reactive Protein 3.8 H D Serum Total Protein 6.6 Albumin 3.9 Globulin 2.7 Albumin/Globulin Ratio 1.4 Group A Strep Rapid 03/29/20 03/29/20 03/29/20 11:28 11:28 12:02 WBC RBC Hgb Hct MCV MCH MCHC RDW Plt Count MPV Absolute Neuts (auto) Absolute Lymphs (auto) Absolute Monos (auto) Absolute Eos (auto) Absolute Basos (auto) Neutrophils % Lymphocytes % Monocytes % Eosinophils % Basophils % PTT (SP) D-Dimer, Quantitative Sodium Potassium Chloride Carbon Dioxide Anion Gap BUN Creatinine BUN/Creatinine Ratio Random Glucose Serum Osmolality Lactic Acid 1.3 Calcium Magnesium Total Bilirubin AST ALT Alkaline Phosphatase LD Total Creatine Kinase Troponin I < 0.02 C-Reactive Protein Serum Total Protein Albumin Globulin Albumin/Globulin Ratio Group A Strep Rapid Negative 03/29/20 13:06 - EKG/XRAY/CT EKG: Sinus, Tachy - Heart rate 110, no ST elevations or Q waves noted, axis normal, intervals normal, no prior EKG for comparison Departure - Departure Clinical Impression: COVID-19 Time of Disposition: 13:03 Disposition: Admit Patient Condition: Fair Diet: resume usual diet Referrals: Filemon Bryant MD [Primary Care Provider] - 1-2 Weeks Home Medications: Ambulatory Orders Dutasteride 0.5 mg PO .1800 12/11/18 Fluoxetine HCl [Fluoxetine Hydrochloride] 12/11/18 Quetiapine Fumarate 25 mg PO BEDTIME PRN 12/11/18 Tamsulosin HCl 0.4 mg PO .1800 12/11/18 Tramadol HCl [Tramadol Hydrochloride] 50 - 100 mg PO Q6H PRN 12/11/18 Trazodone HCl [Trazodone Hydrochloride] 50 mg PO BEDTIME 12/11/18 Cyclobenzaprine HCl [Flexeril] 10 mg PO TID PRN tab 12/14/18 Gabapentin [Neurontin] 600 mg PO TID cap 12/14/18 HYDROcodone 10MG/APAP 325MG [[place] 10/325] 1 ea PO Q4H PRN tab 12/14/18 Pantoprazole Tablet [Protonix] 40 mg PO DAILY@0630 tab 12/14/18 predniSONE 40 mg PO DAILY tab 12/14/18 Decision To Admit - Decistion To Admit Decision to Admit Reason: Admit from ER Decision to Admit Date: 03/29/20 Decision to Admit Time: 13:03
[2020-03-29] MEDS ORDERED: SODIUM CHLORIDE 0.9% 1000ML 1,000 ML IVS ONE (11:31)
--- NOTE | 2020-03-29 12:12 | RAD ---
EXAM DESCRIPTION: Chest,1 View CLINICAL HISTORY: 74 years Male, +COVID-19, dyspnea COMPARISON: 03/26/2020 Findings: One view(s)/radiograph(s) Cardiac silhouette and pulmonary vasculature are within normal limits. No pneumothorax. No pleural effusion. Slightly increased patchy bibasilar airspace disease. No acute osseous abnormality. IMPRESSION: Slightly increased patchy bibasilar airspace disease; pulmonary edema or pneumonia. Electronically signed by: Stephon Sewell MD 03/29/2020 12:10 PM CDT
[2020-03-29] MEDS ORDERED: DEXAMETHASONE INJ 4 MG/ML VIAL IV ONE (13:02)
[2020-03-29] MEDS ORDERED: POTASSIUM CHLORIDE 20 MEQ TAB PO ONE (13:07)
--- NOTE | 2020-03-29 17:01 | HP ---
SUPERVISING PHYSICIAN: Lupillo Goodman M.D. CHIEF COMPLAINT: Shortness of breath. HISTORY OF PRESENT ILLNESS: This is a 74 year-old male patient who was actually diagnosed last week with COVID-19. He has been positive for about a week or so, but he was seen in the Emergency Room 3 days ago for similar symptoms. He had borderline O2 saturations at the time. They were about 92% on room air and he was discharged home. Over the weekend he got a little bit more short of breath and the cough has gotten worse, therefore he came to the Emergency Room today. He also had some diarrhea but this has since resolved. Anyhow, in the Emergency Room he was seen and found to be about 88% on room air. He was also tachypneic with a respiratory rate of 26. Temperature was 99.7. Therefore the patient was referred for admission after being placed on nasal cannula. On 2 liters, he was satting about 94%. Tachypnea improved. At time of examination, the patient was alert and oriented. Lung sounds were diminished but otherwise no wheezing. Hearing mild bibasilar rales. PAST MEDICAL HISTORY: 1. Abdominal aortic aneurysm. 2. Anxiety with depression. 3. CVA. 4. Cervical spinal stenosis. 5. Chronic pain syndrome. 6. Lumbar radiculopathy. 7. Hyperlipidemia. 8. Osteoarthritis of the knee. 9. Basal cell carcinoma. 10. Diverticulosis. PAST SURGICAL HISTORY: 1. Multiple left ankle surgeries due to a traumatic injury. 2. Left shoulder rotator cuff repair. 3. Right hand surgery. 4. Left ankle surgery. 5. Carpal tunnel release bilaterally. 6. Right total knee arthroplasty. CURRENT MEDICATIONS: Sentinel see Med. Rec. list once they are verified in the computer. ALLERGIES: NO KNOWN DRUG ALLERGIES. FAMILY HISTORY: Positive for skin cancer, arrhythmias, osteoarthritis, emphysema. SOCIAL HISTORY: He quit smoking 30 years ago. No alcohol and no illicit drugs. He is , he has three children. REVIEW OF SYSTEMS: CONSTITUTIONAL: Positive for fever, chills and fatigue. No recent weight loss or weight gain. HEENT: No headaches, vision changes, ear pain, nasal congestion or throat pain. RESPIRATORY: Positive for shortness of breath and cough. No hemoptysis, no pleuritic chest pain. CARDIOVASCULAR: No chest pain, palpitations or peripheral edema. GASTROINTESTINAL: Positive for some nausea and diarrhea. No vomiting, no constipation or abdominal pain. GENITOURINARY: No dysuria, frequency or flank pain. ENDOCRINE: No polydipsia, polyuria or polyphagia. No heat or cold intolerance. SKIN: No rashes, lesions or wounds. NEUROLOGIC: No syncope, paresthesias or seizures. PHYSICAL EXAMINATION: VITAL SIGNS: Blood pressure 117/75, heart rate 92, respiratory rate 16, temperature 98.7, oxygen saturation 94%. GENERAL: Mr. Clay is a 74 year-old male patient in no active distress currently. NEUROLOGIC: The patient is alert. LUNGS: Clear to diminished with bibasilar rales. CARDIOVASCULAR: Regular rate and rhythm. Normal S1, S2. ABDOMEN: Soft. Positive bowel sounds. GENITOURINARY: Deferred. EXTREMITIES: Lower extremities with no edema. Capillary refill is less than 2 seconds. LABORATORY: Labs and films are reviewed in the EMR. Low white count at 4.1, hemoglobin is stable. D-dimer is 137. Chemistry with a sodium of 134, potassium 3.3, chloride 97, CO2 is 27, BUN 16, creatinine 0.89, glucose 176, lactate 1.3, calcium 8.1, troponin was negative. RADIOLOGY: Chest x-ray shows some bibasilar patchy infiltrates. ASSESSMENT: 1. COVID pneumonitis. 2. Hypoxia secondary to #1. 3. Hyperglycemia with no evidence of prior diabetes. 4. Depression with anxiety. 5. Chronic pain syndrome. 6. Hypokalemia. PLAN: This patient will be admitted for COVID-19 pneumonitis. Empirically placed on azithromycin and Rocephin as well as Dexamethasone and Remdesivir. Will continue to monitor his O2 saturations and wean oxygen as tolerated. He will be started back on his home medications as well. I have placed him on prophylactic coverage of Lovenox. Potassium was replaced in the Emergency Room. I am going to check a hemoglobin A1c in the morning to see if he has diabetes based on his hyperglycemic finding on chemistry. #[id number] [facility]
[2020-03-29] MEDS ORDERED: traMADol HCL 50 MG TAB PO PRN (18:48)
[2020-03-29] MEDS: ALBUTEROL INHALER 64 PUFF/8GM INH SCH ×2 (19:29→20:50)
[2020-03-29] MEDS: REMDESIVIR 200 MG in SODIUM CHLORIDE 0.9% 250ML 250 ML IVPB SCH (19:29)
[2020-03-29] MEDS: IV SET AND CAP CHANGE INJ INJ SCH (19:29)
[2020-03-29] MEDS: ENOXAPARIN SODIUM 40 MG/0.4 ML SYG SUBCU SCH (19:30)
[2020-03-29] MEDS: traZODone HCL 50 MG TAB PO SCH (21:38)
[2020-03-29] MEDS ORDERED: HYDROcodone 10MG/APAP 325MG 1 EA TAB PO PRN (21:54)
[2020-03-30] MEDS: ALBUTEROL INHALER 64 PUFF/8GM INH SCH ×6 (01:00→20:20)
[2020-03-30] MEDS ORDERED: DEXAMETHASONE INJ 10 MG/ML VIAL ONE (08:11)
[2020-03-30] MEDS ORDERED: AZITHROMYCIN IV 500 MG VIAL IVPB ONE (08:24)
[2020-03-30] MEDS ORDERED: cefTRIAXone SODIUM 1 GM VIAL ONE (08:24)
[2020-03-30] MEDS ORDERED: SODIUM CHLORIDE 0.9% 250ML 250 ML ONE ×2 (08:25→11:47)
[2020-03-30] MEDS ORDERED: SODIUM CHL 0.9% 50ML MIN-BAG+ 50 ML IVPB ONE (08:25)
[2020-03-30] MEDS ORDERED: guaiFENesin ER TAB 600 MG TAB ONE (09:28)
[2020-03-30] MEDS: guaiFENesin ER TAB 600 MG TAB PO SCH ×2 (09:32→21:28)
[2020-03-30] MEDS: cefTRIAXone SODIUM 1 GM in SODIUM CHL 0.9% 50ML MIN-BAG+ 50 ML IVPB SCH (09:32)
[2020-03-30] MEDS: DEXAMETHASONE INJ 10 MG/ML VIAL IV SCH (09:33)
[2020-03-30] MEDS: ENOXAPARIN SODIUM 40 MG/0.4 ML SYG SUBCU SCH (09:33)
[2020-03-30] MEDS: AZITHROMYCIN IV 500 MG in SODIUM CHLORIDE 0.9% 250ML 250 ML IVPB SCH (09:34)
--- NOTE | 2020-03-30 10:18 | PN ---
SUPERVISING PHYSICIAN: Lupillo Goodman MD DATE: 03/30/20 SUBJECTIVE: The patient states he is breathing fairly well. He is still coughing. He has not really coughed anything up yet. He is still short of breath with exertion. OBJECTIVE: VITAL SIGNS: Blood pressure 119/73, heart rate 64, respiratory rate 16, temperature 98.2, oxygen saturation 93% on 2 liters via nasal cannula. GENERAL: Mr. Clay is a 74-year-old male patient who is in no active distress currently. NEUROLOGIC: The patient is alert and oriented. LUNGS: Diminished. CARDIOVASCULAR: Regular rate and rhythm. Normal S1, S2. ABDOMEN: Soft. Positive bowel sounds. EXTREMITIES: Lower extremities with no edema. Pulses 2+. Capillary refill is less than 2 seconds. LABORATORY: White blood count 2.6, hemoglobin 13.0, hematocrit 37.4, platelet count 141. D-dimer less than 131, fibrinogen is 406. Chemistry is unremarkable, still with a mildly elevated glucose at 122, however, the patient had a hemoglobin A1c of 5.5. CRP down to 3.0 from 3.8. ASSESSMENT: 1. COVID pneumonitis. 2. Hypoxia secondary to #1. 3. Hyperglycemia with no diabetes as indicated by hemoglobin A1c of 5.5. 4. Depression with anxiety. 5. Chronic pain syndrome. 6. Hypokalemia, resolved. PLAN: We will continue current COVID therapy with empiric azithromycin, ceftriaxone as well as daily dexamethasone 6 mg. Additionally, I have the patient on DVT prophylaxis with Lovenox. We will continue the daily Remdesivir at 100 mg daily. Recheck serial labs and chest x-ray tomorrow. #[id number] [facility]
[2020-03-30] MEDS: REMDESIVIR 100 MG in SODIUM CHLORIDE 0.9% 250ML 250 ML IVPB SCH (14:19)
[2020-03-30] MEDS ORDERED: TAMSULOSIN 0.4 MG CAP ONE (15:46)
[2020-03-30] MEDS: TAMSULOSIN 0.4 MG CAP PO SCH (17:33)
[2020-03-30] MEDS: DUTASTERIDE 0.5 MG CAP PO SCH (17:33)
[2020-03-30] MEDS: REMDESIVIR 200 MG in SODIUM CHLORIDE 0.9% 250ML 250 ML IVPB SCH (18:54)
[2020-03-30] MEDS: traZODone HCL 50 MG TAB PO SCH (21:28)
[2020-03-30] MEDS: QUEtiapine FUMARATE 25 MG TAB PO SCH (21:28)
[2020-03-30] MEDS: FLUoxetine HCL 10 MG CAP PO SCH (21:28)
[2020-03-31] MEDS: ALBUTEROL INHALER 64 PUFF/8GM INH SCH ×6 (00:05→20:10)
--- NOTE | 2020-03-31 07:02 | RAD ---
EXAM: XR Chest, 1 View CLINICAL HISTORY: The patient is 74 years old and is Male; pneumonia TECHNIQUE: Single upright portable view of the chest. COMPARISON: March 29, 2020 11:35 AM. FINDINGS: Lungs: Bibasilar hazy pulmonary opacities are decreased in conspicuity compared with the prior exam. Pleural space: Unremarkable. No pneumothorax. Heart: Cardiomediastinal silhouette is not significantly changed given the differences in technique. Mediastinum: See above. Bones/joints: The bones and joints are unchanged as visualized. Upper abdomen: No free air in the visualized upper abdomen. IMPRESSION: Bibasilar hazy pulmonary opacities are decreased in conspicuity compared with the prior exam. Electronically signed by: Charlee Martini MD 03/31/2020 7:01 AM CDT
[2020-03-31] MEDS: guaiFENesin ER TAB 600 MG TAB PO SCH ×2 (08:26→20:04)
[2020-03-31] MEDS: cefTRIAXone SODIUM 1 GM in SODIUM CHL 0.9% 50ML MIN-BAG+ 50 ML IVPB SCH (08:26)
[2020-03-31] MEDS: ENOXAPARIN SODIUM 40 MG/0.4 ML SYG SUBCU SCH (08:26)
[2020-03-31] MEDS: DEXAMETHASONE INJ 10 MG/ML VIAL IV SCH (08:26)
[2020-03-31] MEDS: SODIUM CHLORIDE 0.9% (FLUSH) 10 ML SYG IV PRN (08:26)
[2020-03-31] MEDS: AZITHROMYCIN IV 500 MG in SODIUM CHLORIDE 0.9% 250ML 250 ML IVPB SCH (08:39)
[2020-03-31] MEDS: REMDESIVIR 100 MG in SODIUM CHLORIDE 0.9% 250ML 250 ML IVPB SCH (10:00)
--- NOTE | 2020-03-31 11:32 | PN ---
SUPERVISING PHYSICIAN: Lupillo Goodman MD DATE: 03/31/20 SUBJECTIVE: The patient states he feels okay. No complaints of shortness of breath except for exertion, but at rest, he is not having any chest pain or dyspnea. He is still having a cough, but nonproductive. OBJECTIVE: VITAL SIGNS: Blood pressure 122/78, heart rate 89, respiratory rate 16, temperature 98.0, oxygen saturation current 95% on 2 liters. It increased to 4 liters at one point, but back down to 2 liters now. GENERAL: Mr. Clay is a 74-year-old male patient who is in no active distress currently. NEUROLOGIC: The patient is alert. LUNGS: Diminished. CARDIOVASCULAR: Regular rate and rhythm. Normal S1, S2. ABDOMEN: Soft. Positive bowel sounds. EXTREMITIES: Lower extremities with no edema. RADIOLOGY: Chest x-ray indicates the bibasilar hazy pulmonary opacities are decreased in intensity. LABORATORY: White blood count 3.6. D-dimer less than 131, fibrinogen 406. Chemistry unremarkable. CRP down to 1.5 from 3.0. ASSESSMENT: 1. COVID pneumonitis. 2. Hypoxia secondary to #1. 3. Hyperglycemia with no history of diabetes with hemoglobin A1c of 5.5. 4. Depression with anxiety. 5. Chronic pain syndrome. 6. Hypokalemia, resolved. PLAN: The patient is maintaining fairly well with small bowel series improvements in his labs. I will continue the azithromycin, ceftriaxone, dexamethasone and Remdesivir. We will continue to wean oxygen as tolerated. Hopefully, he can go home after completion of Remdesivir, but we will continue to monitor. #[id number] [facility]
[2020-03-31] MEDS ORDERED: DUTASTERIDE 0.5 MG CAP ONE (15:55)
[2020-03-31] MEDS ORDERED: TAMSULOSIN 0.4 MG CAP ONE (15:56)
[2020-03-31] MEDS: DUTASTERIDE 0.5 MG CAP PO SCH (17:11)
[2020-03-31] MEDS: TAMSULOSIN 0.4 MG CAP PO SCH (17:11)
[2020-03-31] MEDS: traZODone HCL 50 MG TAB PO SCH (20:04)
[2020-03-31] MEDS: QUEtiapine FUMARATE 25 MG TAB PO SCH (20:04)
[2020-03-31] MEDS: FLUoxetine HCL 10 MG CAP PO SCH (20:04)
[2020-04-01] MEDS: ALBUTEROL INHALER 64 PUFF/8GM INH SCH ×6 (00:30→20:45)
[2020-04-01] MEDS: guaiFENesin ER TAB 600 MG TAB PO SCH ×2 (08:42→20:02)
[2020-04-01] MEDS: cefTRIAXone SODIUM 1 GM in SODIUM CHL 0.9% 50ML MIN-BAG+ 50 ML IVPB SCH (08:42)
[2020-04-01] MEDS: ENOXAPARIN SODIUM 40 MG/0.4 ML SYG SUBCU SCH (08:42)
[2020-04-01] MEDS: AZITHROMYCIN IV 500 MG in SODIUM CHLORIDE 0.9% 250ML 250 ML IVPB SCH (08:44)
[2020-04-01] MEDS: DEXAMETHASONE INJ 10 MG/ML VIAL IV SCH (08:44)
[2020-04-01] MEDS: REMDESIVIR 100 MG in SODIUM CHLORIDE 0.9% 250ML 250 ML IVPB SCH (11:13)
[2020-04-01] MEDS: IV SET AND CAP CHANGE INJ INJ SCH (14:55)
[2020-04-01] MEDS: TAMSULOSIN 0.4 MG CAP PO SCH (17:30)
[2020-04-01] MEDS: DUTASTERIDE 0.5 MG CAP PO SCH (17:30)
[2020-04-01] MEDS: FLUoxetine HCL 10 MG CAP PO SCH (20:02)
[2020-04-01] MEDS: traZODone HCL 50 MG TAB PO SCH (20:02)
[2020-04-01] MEDS: QUEtiapine FUMARATE 25 MG TAB PO SCH (20:02)
--- NOTE | 2020-04-01 20:17 | PN ---
SUPERVISING PHYSICIAN: Lupillo Goodman Md DATE: 04/01/20 SUBJECTIVE: The patient is still a little short of breath. No complaints of shortness of breath, a little nonproductive cough. His shortness of breath seems more exacerbated by exertional effort. He has no chest pain, nausea, vomiting, diarrhea. OBJECTIVE: VITAL SIGNS: Temperature 97.4 pulse 74, blood pressure 111/63, respirations 17 to 18, oxygen saturation 98% on room air. GENERAL: The patient looks to be resting comfortably and in no obvious distress. He is alert. LUNGS: Diminished.lungs sounds, no obvious rales or rhonchi are noted. CARDIOVASCULAR: Regular rate and rhythm. ABDOMEN: Soft, non-tender.. Positive bowel sounds. EXTREMITIES: Without edema. LABORATORY: White count 5,000, hgb 13.2, hematocrit 38.0, platelet count 172,000, differential shows to be without a left shift. D-dimer today is less than 131, fibrinogen 95, PTT 25.6. Chemistries show normal electrolytes, creatinine 0.67, liver functions all within normal limits. C-reactive protein down to 1.5, troponin less than 0.02. MICROBIOLOGY: Blood cultures remain negative after 3 days. RADIOLOGY: Chest x-ray will be repeated tomorrow. Yesterday's chest x-ray shows bibasilar hazy pulmonary opacities with decreased in intensity compared to previous exam as per radiology interpretation. ASSESSMENT: 1. COVID pneumonitis. 2. Hypoxia secondary to #1. 3. Hyperglycemia with no history of diabetes with hemoglobin A1c of 5.5. 4. Depression with anxiety. 5. Chronic pain syndrome. 6. Hypokalemia, resolved. PLAN: Will continue to maintain current plan of care at this point with azithromycin,, Ceftriaxone, Dexamethasone and Remdesivir. Will continue to titrate oxygen down as tolerated to room air. I suspect that he will be able to be discharged tomorrow but will reevaluate in the morning. Until then, we will continue to monitor and treat as needed. #[id number] [facility]
[2020-04-02] MEDS: ALBUTEROL INHALER 64 PUFF/8GM INH SCH ×4 (00:23→12:35)
[2020-04-02] MEDS ORDERED: SODIUM CHLORIDE 0.9% 250ML 250 ML ONE (07:14)
[2020-04-02] MEDS: cefTRIAXone SODIUM 1 GM in SODIUM CHL 0.9% 50ML MIN-BAG+ 50 ML IVPB SCH (07:34)
[2020-04-02] MEDS: DEXAMETHASONE INJ 10 MG/ML VIAL IV SCH (08:14)
[2020-04-02] MEDS: guaiFENesin ER TAB 600 MG TAB PO SCH (08:14)
[2020-04-02] MEDS: SODIUM CHLORIDE 0.9% (FLUSH) 10 ML SYG IV PRN (08:15)
[2020-04-02] MEDS: ENOXAPARIN SODIUM 40 MG/0.4 ML SYG SUBCU SCH (08:15)
[2020-04-02] MEDS: REMDESIVIR 100 MG in SODIUM CHLORIDE 0.9% 250ML 250 ML IVPB SCH (08:15)
[2020-04-02] MEDS: AZITHROMYCIN IV 500 MG in SODIUM CHLORIDE 0.9% 250ML 250 ML IVPB SCH (10:40)
[2020-04-02 13:25] VITALS: BP 107/65; TEMP 98.4; O2SAT 100
--- NOTE | 2020-04-13 08:47 | DS ---
SUPERVISING PHYSICIAN: Lupillo Goodman MD ADMISSION DIAGNOSIS: 1. COVID pneumonitis. 2. Hypoxia secondary to #1. 3. Hyperglycemia with no evidence of prior diabetes. 4. Depression with anxiety. 5. Chronic pain syndrome. 6. Hypokalemia. DISCHARGE DIAGNOSIS: 1. COVID pneumonitis. 2. Hypoxia secondary to #1. 3. Hyperglycemia with no history of diabetes with hemoglobin A1c of 5.5. 4. Depression with anxiety. 5. Chronic pain syndrome. 6. Hypokalemia, resolved. REASON FOR HOSPITALIZATION: This is a 74 year-old male patient who was actually diagnosed last week with COVID-19. He has been positive for about a week or so, but he was seen in the Emergency Room 3 days ago for similar symptoms. He had borderline O2 saturations at the time. They were about 92% on room air and he was discharged home. Over the weekend he got a little bit more short of breath and the cough has gotten worse, therefore he came to the Emergency Room today. He also had some diarrhea but this has since resolved. Anyhow, in the Emergency Room he was seen and found to be about 88% on room air. He was also tachypneic with a respiratory rate of 26. Temperature was 99.7. Therefore the patient was referred for admission after being placed on nasal cannula. On 2 liters, he was satting about 94%. Tachypnea improved. At time of examination, the patient was alert and oriented. Lung sounds were diminished but otherwise no wheezing. Hearing mild bibasilar rales. LABORATORY: White count on discharge was 4,500, hemoglobin 12.2, hematocrit 35.7. Differential was without a left shift. D-dimer was normal. Chemistries showed normal electrolytes. C-reactive protein was 1.5. Troponin less than 0.02. Creatinine 0.74. MICROBIOLOGY: Group A rapid strep was negative. Respiratory panel showed COVID-19 positive. Group A strep was negative. Blood cultures remained negative after 5 days. RADIOLOGY: Final chest x-ray on 03/31/20 showed bibasilar hazy pulmonary opacities, decreased in conspicuity compared to previous exams. Please see those reports for details. EKG shows a sinus tachycardia at 112 initially on admission with no signs of ST or T-wave changes to indicate acute ischemia. HOSPITAL COURSE: Mr. Clay was treated for COVID pneumonitis with Decadron, Remdesivir, albuterol, Lovenox, Rocephin and azithromycin. He had good clinical improvement. On day of discharge, he was showing room air saturations 100%, blood pressure 107/65, respirations 16, pulse 57, temperature 98.4. He improved clinically well enough to continue with outpatient management. PLAN: Mr. Clay was discharged on 04/02/20 with instructions to followup with Dr. Bryant on 04/06/20 via Telemedicine. He was to continue diet as usual and increase activity as tolerated. MEDICATIONS PRESCRIBED ON DISCHARGE: 1. Albuterol inhaler 2 puffs q.4h. as needed, #1 inhaler, no refills. 2. Azithromycin 500 mg daily, #2, no refills. 3. Decadron 6 mg daily, #7, no refills. 4. Guaifenesin 1200 mg twice daily [id number]. 5. Cefdinir 300 mg twice daily, #14, no refills. CONDITION ON DISCHARGE: Stable and improved. DISPOSITION: The patient is discharged home. #[id number] [facility]
== END 2020-04-02 14:25 | disposition home or self-care (01) | DRG 177 ==
LOC: ER 11:03 → MS 16:59
PROVIDERS: ADMIT Nurse Practitioner; ATTEND Nurse Practitioner Family
PROC: XW033E5 Introduction of Remdesivir Anti-infective into Peripheral Vein, Percutaneous Approach, New Technology Group 5 (ICD-10-PCS; principal; 2020-03-29)
DX: U07.1 COVID-19 (principal); J12.89 Other viral pneumonia; R09.02 Hypoxemia; R73.9 Hyperglycemia, unspecified; F41.8 Other specified anxiety disorders; G89.4 Chronic pain syndrome; E87.6 Hypokalemia; I71.4 Abdominal aortic aneurysm, without rupture; E78.5 Hyperlipidemia, unspecified; M17.9 Osteoarthritis of knee, unspecified; Z96.651 Presence of right artificial knee joint; Z87.891 Personal history of nicotine dependence; Z79.52 Long term (current) use of systemic steroids; Z79.891 Long term (current) use of opiate analgesic; Z79.899 Other long term (current) drug therapy

== ENCOUNTER → 2020-04-08 | Outpatient (CLI) | payer MEDICARE, OTHER | LOC: GMAM 16:16 | PROVIDERS: ATTEND Family Medicine | DX: R07.9 Chest pain, unspecified (principal) ==

== ENCOUNTER → 2020-04-27 | Outpatient (CLI) | payer MEDICARE, OTHER | LOC: GMAM 11:49 | PROVIDERS: ATTEND Family Medicine | DX: U07.1 COVID-19 (principal) ==